=== PATIENT | male | born 1945 | race Native Hawaiian/Other Pacific Islander ===

== ENCOUNTER 2022-02-20 07:56 | Emergency (ER) | payer OTHER ==
[~2022-02-20] VITALS: Ht 180.3 cm; Wt 79.4 kg
[2022-02-20 07:58] VITALS: TEMP 98
[2022-02-20 08:14] LABS: PLATELET COUNT 196 K/uL (142-355)
[2022-02-20 08:15] LABS: POTASSIUM 3.4 mmol/L (3.6-5.2)
[2022-02-20 08:24] LABS: PARTIAL THROMBOPLASTIN TIME 25.1 SECONDS (24.5-33.6)
[2022-02-20 11:20] VITALS: BP 159/75
== END 2022-02-20 11:20 | disposition home or self-care (01) ==
LOC: ED 07:56
PROVIDERS: Family Medicine
DX: R00.1 Bradycardia, unspecified (principal); I10 Essential (primary) hypertension; E87.6 Hypokalemia
CPT/HCPCS: 36415; 80053; 82550; 82948; 84484; 85027; 85379; 85610; 85730; 93005; 96360; 96374; 99284; J2405